=== PATIENT | female | born 2000 | race Caucasian/White ===

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

== ENCOUNTER 2025-02-24 04:15 | Emergency (ER) | payer MEDICAID ==
[~2025-02-24] VITALS: Ht 157.5 cm; Wt 70.5 kg
[~2025-02-24 04:15] MED LIST: NO HOME MEDS
--- NOTE | 2025-02-24 04:41 | Physician Documentation ---
History of Present Illness ~ Chief Complaint: Bloody Emesis Stated Complaint: COMPLICATIONS Time Seen by MD: 04:34 Primary Medical Doctor: ALISON BANGURA HPI Patient presents to the emergency room with the vomiting. She reports that she is at 24 weeks. She states she is always nauseous when she woke up at 2:00 a.m. this morning with significant more nausea. She states she took some Zofran without effect. She reports some blood in her vomit. Medication Reconciliation Allergies: Coded Allergies: pineapple (Verified Allergy, Severe, tingling on the tongue, throat swell s, 02/24/25) acetaminophen (Verified Allergy, Unknown, 02/24/25) kiwi (Unverified Allergy, Unknown, 02/24/25) metoclopramide (Unverified Allergy, Unknown, 02/24/25) Miscellaneous Medications Home Med List (No Home Medications), (Reported) Past Medical History Past Medical History: Anxiety, Depression Past Surgical History: tonsillectomy Alcohol Use: None Drug Use: none Lives with: Family Lives In: Home Occupation: student Review of Systems ROS All review of systems negative except as per HPI Physical Exam Vital Signs: Temperature: 97.0, Source: Temporal, Heart Rate: 83, Respiratory Rate: 16, BP: 102/67, Pulse Oximetry: 98, Weight: 70.500 Oxygen Flow Rate: 0 Physical Exam General: Patient is awake, alert, oriented x4 in mild distress. Anxious Head: Normocephalic and atraumatic. Eyes: Conjunctival normal. EOMI. PERRL. ENT: Mucous membranes moist. Neck: Supple, trachea is midline. Chest: Clear to auscultation bilaterally without rales, rhonchi, or wheezes. There is no accessory muscle use or retractions. Cardiac: RRR without murmurs, gallops, or rubs. Abd: Soft, nondistended, nontender, with normoactive bowel sounds. No guarding, rebound, or rigidity. Progress Results/Orders Results/Orders Orders - GAVIN PHAN MD Urinalysis, Cult If Indicated (02/24/25 04:32) Straight Cath For Urine Sample (02/24/25 04:32) Chest,Single View (02/24/25 04:57) Normal Saline 1000ml (Sodium Chloride 10 (02/24/25 04:45) Completed Orders - GAVIN PHAN MD Cbc/Diff (02/24/25 04:32) BMP (02/24/25 04:32) Lipase (02/24/25 04:32) CMP (02/24/25 04:32) Hcg Serum Ql (02/24/25 04:36) Chest,Single View (02/24/25 04:57) Diphenhydramine Inj (Benadryl Inj.) (02/24/25 04:40) Prochlorperazine Inj (Compazine Inj) (02/24/25 04:40) Famotidine/Pf Iv Inj (Pepcid Iv Inj) (02/24/25 04:45) Medications Received in ER Medications (Trade) Dose Ordered Sig/Sincere Route PRN Reason Start Time Stop Time Status Last Admin Dose Admin (Compazine inj) 10 mg ONCE ONCE IV 02/24/25 04:40 02/24/25 04:41 DC 02/24/25 04:46 10 MG Sodium Chloride 1,000 ml @ 1,000 mls/hr ONCE ONCE IV 02/24/25 04:45 02/24/25 05:44 02/24/25 04:51 1,000 MLS/HR (Pepcid IV inj) 20 mg ONCE ONCE IV 02/24/25 04:45 02/24/25 04:46 DC 02/24/25 04:49 20 MG Vital Signs 02/24/25 02/24/25 02/24/25 04:17 05:06 05:06 Temp 97.0 Pulse 83 80 Resp 16 18 18 B/P (MAP) 102/67 118/74 (89) Pulse Ox 98 99 O2 Flow Rate 0 Laboratory Tests Test 02/24/25 04:42 02/24/25 05:13 Sodium Level 136 Potassium Level 3.5 Chloride Level 101 Carbon Dioxide Level 20.5 L Anion Gap 15 Blood Urea Nitrogen 7 Creatinine 0.60 Estimated GFR/1.73 m2 > 90 BUN/Creatinine Ratio 11.7 Glucose Level 104 Calcium Level 9.8 Total Bilirubin 0.3 Aspartate Amino Transf (AST/SGOT) 21 Alanine Aminotransferase (ALT/SGPT) 15 Alkaline Phosphatase 71 Total Protein 7.6 Albumin 3.2 L Globulin 4.4 H Albumin/Globulin Ratio 0.7 L Lipase 23 Human Chorionic Gonadotropin, Qual Positive Chemistry Comments White Blood Count 11.7 H Red Blood Count 3.44 L Hemoglobin 10.0 L Hematocrit 30.2 L Mean Corpuscular Volume 88.0 Mean Corpuscular Hemoglobin 29.2 Mean Corpuscular Hemoglobin Concent 33.2 Red Cell Distribution Width 13.3 Platelet Count 274 Mean Platelet Volume 8.9 Neutrophils (%) (Auto) 76.0 H Lymphocytes (%) (Auto) 16.3 L Monocytes (%) (Auto) 6.5 Eosinophils (%) (Auto) 1.1 Basophils (%) (Auto) 0.1 Neutrophils # (Auto) 8.9 H Lymphocytes # (Auto) 1.9 Monocytes # (Auto) 0.8 Eosinophils # (Auto) 0.1 Basophils # (Auto) 0.0 CBC Comment Medical Decision Making Findings Patient presents to the emergency room with nausea and vomiting as per HPI differentials include but are not limited to hyperemesis, panic attack, dehydration, electrolyte disturbances therefore labs performed which were reassuring. Patient does have decreased CO2 and believe this is partially r elated to a combination of dehydration as well as patient being very worked up. She has responded to Benadryl and Compazine in his feeling much better in his received IV fluids and she is asking to go. Chest x-ray is reassuring for no subcutaneous emphysema and he had not feel she is suffering from Borhaavs and I believe the risk of radiation exposure of CT to the fetus outweighs any benefit for low suspicion Borhaavs. No appreciable blood in vomitus. Possible Whitney- Lizama Departure Disposition: 01 HOME / SELF CARE / HOMELESS Impression: Primary Impression: Vomiting Condition: Improved Discharge Instructions: Vomiting, Adult Referrals: NO PRIMARY CARE PROVIDER (PCP) Education Educated: Patient Educated regarding: diagnosis, treatment, need for follow up Signature Scribe Signature: No scribe Attestation: The note accurately reflects work and decisions made by me.Gavin Phan MD 02/24/25 05:25 GAVIN PHAN MD Feb 24, 2025 04:41
[2025-02-24] MEDS: proCHLORperazine 10 MG/2 ml inj IV ONE (04:46)
[2025-02-24] MEDS: famotidine/PF 10 mg/ml inj IV ONE (04:49)
[2025-02-24] MEDS: normal saline 1000ml 1,000 ML IV ONE (04:51)
[2025-02-24] MEDS: diphenhydrAMINE 50 mg/ml inj IV ONE (04:55)
[2025-02-24 05:09] LABS: HCG SERUM QL POSITIVE
--- NOTE | 2025-02-24 05:09 | RADIOLOGY REPORT ---
CHEST RADIOGRAPH Indication: cp with vomiting Technique: Single frontal view of the chest was obtained COMPARISON: None FINDINGS: Lines and Tubes: None Lungs: Clear Pleura: No effusion. No pneumothorax. Cardiomediastinal contours: Unremarkable Bones: Unremarkable IMPRESSION: No acute disease.
[2025-02-24 05:19] LABS: ALANINE AMINOTRANSFERASE 15 U/L (12-78); ALBUMIN 3.2 G/DL (3.4-5.0); ALBUMIN/GLOBULIN RATIO 0.7 (1.1-1.5); ALKALINE PHOSPHATASE 71 IU/L (46-116); ANION GAP 15 (8-16); ASPARTATE AMINO TRANSFERASE 21 U/L (10-37); BILIRUBIN,TOTAL 0.3 MG/DL (0.1-1.0); BLOOD UREA NITROGEN 7 MG/DL (7-18); BUN/CREATININE RATIO 11.7 (10.0-20.0); CALCIUM 9.8 MG/DL (8.5-10.1); CHLORIDE 101 MMOL/L (99-107); GLUCOSE 104 MG/DL (70-104); LIPASE 23 U/L (16-77); POTASSIUM 3.5 MMOL/L (3.5-5.1); SODIUM 136 MMOL/L (135-145); TOTAL CARBON DIOXIDE 20.5 MMOL/L (24-32); TOTAL PROTEIN 7.6 G/DL (6.4-8.2); eCRCL 115 ML/MIN; eGFR > 90 ML/MIN
[2025-02-24 05:20] LABS: BASOPHILS % (AUTO) 0.1 % (0-1); EOSINOPHILS # (AUTO) 0.1 X10'3 (0-0.9); EOSINOPHILS % (AUTO) 1.1 % (0-6); HEMATOCRIT 30.2 % (35.0-45.0); LYMPHOCYTES # (AUTO) 1.9 X10'3 (1.1-4.8); LYMPHOCYTES % (AUTO) 16.3 % (21-51); MEAN CORPUSCULAR HEMOGLOBIN 29.2 PG (27.0-31.0); MEAN CORPUSCULAR HGB CONC 33.2 g/dL (33.0-36.5); MEAN PLATELET VOLUME 8.9 FL (7.4-10.4); MONOCYTES # (AUTO) 0.8 X10'3 (0-0.9); MONOCYTES % (AUTO) 6.5 % (2-12); NEUTROPHILS # (AUTO) 8.9 X10'3 (1.8-7.7); PLATELET COUNT 274 X10'3 (140-440); RED BLOOD COUNT 3.44 X10'6 (4.20-5.60); RED CELL DISTRIBUTION WIDTH 13.3 % (11.5-14.5); WHITE BLOOD COUNT 11.7 X10'3 (4.5-11.0)
[2025-02-24 05:35] VITALS: BP 124/76; PULSE 74; RESP 12; TEMP 97.8; O2SAT 99
== END 2025-02-24 05:39 | disposition home or self-care (01) ==
LOC: ER 04:16
DX: O21.9 Vomiting of pregnancy, unspecified (principal); Z3A.24 24 weeks gestation of pregnancy; Z90.89 Acquired absence of other organs
CPT/HCPCS: 36415; 71045; 80053; 83690; 84703; 85025; 96361; 96374; 96375; 99284; J0780; J3490; J7030

== ENCOUNTER 2025-06-08 22:31 | Emergency (ER) | payer MEDICAID ==
[~2025-06-08] VITALS: Ht 160 cm; Wt 69.4 kg
[2025-06-08 22:39] VITALS: BP 96/60; PULSE 72; RESP 16; O2SAT 98
[2025-06-09 00:58] VITALS: TEMP 97.9
== END 2025-06-09 00:59 | disposition left against medical advice (07) ==
LOC: ER 22:32
DX: R11.0 Nausea (principal); Z53.21 Procedure and treatment not carried out due to patient leaving prior to being seen by health care provider; Z88.8 Allergy status to other drugs, medicaments and biological substances; Z91.040 Latex allergy status

== ENCOUNTER 2025-08-07 08:34 | Emergency (ER) | payer MEDICAID ==
[~2025-08-07] VITALS: Ht 160 cm; Wt 65.8 kg
[2025-08-07 08:35] VITALS: TEMP 98
[2025-08-07 09:30] LABS: MEAN PLATELET VOLUME 8.8 FL (7.4-10.4); RED CELL DISTRIBUTION WIDTH 14.7 % (11.5-14.5)
[2025-08-07 09:57] LABS: CREATININE 0.76 MG/DL (0.40-0.90); TOTAL CARBON DIOXIDE 24.1 MMOL/L (24-32); eCRCL 94 ML/MIN; eGFR > 90 ML/MIN
[2025-08-07 10:02] LABS: ETHANOL < 10 MG/DL (<10)
--- NOTE | 2025-08-07 10:09 | Physician Documentation ---
History of Present Illness ~ Chief Complaint: Mental Health Eval Stated Complaint: SEE CHIEF Time Seen by MD: 08:58 Primary Medical Doctor: ALISON BANGURA Mode of Arrival: POV, Ambulatory HPI This is a 25-year-old female with a history of bipolar disorder, anxiety, and depression who presents with increased feelings of anxiety and a feeling of being overwhelmed due to life stressors including an eight month old and a toddler at home and relationship issues with partner. Patient reports that she has been out of her previously prescribed medication for bipolar disorder and her levothyroxine. Patient reports that she has not been able to sleep for the past three days due to caring for her and her toddler who has a cold. Patient additionally reports that she accidentally struck her head on a dresser while sitting down this morning as well and now has a headache with nausea, she reports no loss of consciousness. Reports that she did vomit though she believes this was due to stress. Reports she has history of migraines and reports pain in her head as unilateral to left side and throbbing in nature. No other acute symptoms or concerns. Patient reports no suicidal ideation or homicidal ideation. Medication Reconciliation Allergies: Coded Allergies: pineapple (Verified Allergy, Severe, tingling on the tongue, throat swells, 06/21/25) latex (Verified Allergy, Mild, ITCHY, 06/21/25) acetaminophen (Verified Allergy, Unknown, 06/21/25) kiwi (Unverified Allergy, Unknown, 06/21/25) metoclopramide (Unverified Allergy, Unknown, 06/21/25) Scheduled Hydroxyzine Hcl (Atarax), 1 TAB PO Q8H Levothyroxine Sodium (Synthroid), 1 TAB PO DAILY Lurasidone HCl (Latuda), 1 TAB PO DAILY Miscellaneous Medications Home Med List (No Home Medications), (Reported) Past Medical History Past Medical History: Anxiety, Bipolar, Depression Past Surgical History: tonsillectomy Alcohol Use: None Drug Use: none Lives with: Family Lives In: Home Occupation: student Review of Systems ROS As stated above in the HPI, otherwise all systems are reviewed and negative. Physical Exam Vital Signs: Temperature: 98.0, Heart Rate: 65, Respiratory Rate: 15, BP: 97/68, Pulse Oximetry: 98, Weight: 65.800 Oxygen Flow Rate: 0 Physical Exam VITALS: Reviewed and as above. GENERAL: Alert, nontoxic appearing, no apparent distress. HEENT: PERRLA, EOMI, no scalp lacerations, no bar sign, no periorbital ecchymosis RESPIRATORY: No increased work of breathing, no respiratory distress, speaking in full clear sentences NEURO: GCS 15 PSYCH: Tearful, anxious appearing Progress Results/Orders Results/Orders Completed Orders - SAI CEVALLOS [employer] OFF[employer] Ondansetron Disint. Tablet (Zofran Odt T (08/07/25 10:05) Hydroxyzine Tablet (Atarax Tablet) (08/07/25 10:05) Ketorolac Trometh 15mg/Ml Vial (Toradol (08/07/25 10:05) Vital Signs 08/07/25 08/07/25 08/07/25 08/07/25 08:35 08:54 09:46 10:16 Temp 98.0 Pulse 115 65 Resp 16 20 15 17 B/P (MAP) 135/91 97/68 (78) Pulse Ox 95 98 O2 Flow Rate 0 08/07/25 10:40 Pulse 59 Resp 15 B/P (MAP) 112/76 Pulse Ox 99 Laboratory Tests Test 08/07/25 09:14 White Blood Count 8.9 Red Blood Count 4.40 Hemoglobin 13.2 Hematocrit 39.9 Mean Corpuscular Volume 90.6 Mean Corpuscular Hemoglobin 30.0 Mean Corpuscular Hemoglobin Concent 33.1 Red Cell Distribution Width 14.7 H Platelet Count 302 Mean Platelet Volume 8.8 Neutrophils (%) (Auto) 67.5 Lymphocytes (%) (Auto) 21.2 Monocytes (%) (Auto) 7.5 Eosinophils (%) (Auto) 3.0 Basophils (%) (Auto) 0.8 Neutrophils # (Auto) 6.0 Lymphocytes # (Auto) 1.9 Monocytes # (Auto) 0.7 Eosinophils # (Auto) 0.3 Basophils # (Auto) 0.1 CBC Comment Sodium Level 140 Potassium Level 3.6 Chloride Level 107 Carbon Dioxide Level 24.1 Anion Gap 9 Blood Urea Nitrogen 10 Creatinine 0.76 Estimated GFR/1.73 m2 > 90 BUN/Creatinine Ratio 13.2 Glucose Level 100 Calcium Level 8.8 Albumin 3.9 Thyroid Stimulating Hormone (TSH) 20.21 H Chemistry Comments Ethyl Alcohol Level < 10 Medical Decision Making Additional information obtaine: N/A Findings This 25-year-old female with a history of bipolar, headache, and depression presented with increased symptoms of anxiety and feeling overwhelmed due to life stressors, additionally patient is currently not on prescribed medications for bipolar disorder or hypothyroidism, and reports headache after injury to the back of her head due to bumping her head on a dresser. Patient is otherwise well-appearing with benign physical exam no injuries noted to scalp and no evidence of head injury that would warrant imaging per [place] head CT rule. It is reassuring patient is reporting no homicidal ideation or suicidal ideation, patient will be restarted on previously prescribed medications and prescribed a as needed medication for anxiety until she can follow up with her primary care provider primary mental health provider. Patient medicated for headache and nausea. Patient is stable and appropriate for outpatient follow up. Patient provided careful return to care precautions, follow up instructions, and home care instructions. Return precautions included returning immediately to the emergency department, [facility], or [facility] clinic/mobile crisis team if she develops thoughts of harming herself or other. Patient verbalized understanding of all discharge instructions. Differential Dx:Considerations: Include: Anxiety, Bipolar disorder, Conversion disorder, Depression, Homicidal, Panic disorder, Personality disorder, Schizophrenia, Substance abuse, Suicidal, Other (Migraine, scalp laceration, skull fracture, intracranial hemorrhage) Departure Time of Disposition: 10:30 Disposition: 01 HOME / SELF CARE / HOMELESS Impression: Primary Impression: Anxiety Additional Impression: Headache Qualified Codes: R51.9 - Headache, unspecified Condition: Improved Discharge Instructions: Depression, Adult, Panic Attack Additional Instructions: Please take medications as prescribed. Follow up as soon as possible with your mental health provider. Please follow up with your primary care provider in the next few days. Please return to the emergency department for any new or worsening concerning symptoms. Referrals: NO PRIMARY CARE PROVIDER (PCP) Prescriptions Hydroxyzine Hcl (Atarax) 25 Mg Tablet 1 TAB PO Q8H for anxiety for 30 Days, #90 TAB 0 Refills Prov: SAI CEVALLOS 08/07/25 Lurasidone HCl (Latuda) 20 Mg Tablet 1 TAB PO DAILY for 30 Days, #30 TAB 0 Refills Prov: SAI CEVALLOS 08/07/25 Levothyroxine Sodium (SYNTHROID) 100 Mcg Tablet 1 TAB PO DAILY for 30 Days, #30 TAB 0 Refills Prov: SAI CEVALLOS 08/07/25 Education Educated: Patient Educated regarding: diagnosis, treatment, prognosis, need for follow up Signature Scribe Signature: No scribe Attestation: The note accurately reflects work and decisions made by me.RAMANDEEP Ontiveros 08/07/25 20:43 SAI CEVALLOS Aug 07, 2025 10:09
[2025-08-07] MEDS: ondansetron 4mg rapidly disintigrating tab PO ONE (10:15)
[2025-08-07] MEDS: ketorolac trometh 15mg/ml vial 15 MG/ML ML IM ONE (10:16)
[2025-08-07] MEDS ORDERED: LEVO100T PO (10:35)
[2025-08-07] MEDS ORDERED: HYDR-3686 PO (10:35)
[2025-08-07] MEDS ORDERED: LURA20TA8 PO (10:35)
[2025-08-07 10:40] VITALS: BP 112/76; PULSE 59; RESP 15; O2SAT 99
== END 2025-08-07 10:43 | disposition home or self-care (01) ==
LOC: ER 08:35
DX: R51.9 Headache, unspecified (principal); F41.9 Anxiety disorder, unspecified; R11.2 Nausea with vomiting, unspecified; F31.9 Bipolar disorder, unspecified; Z90.89 Acquired absence of other organs; Z91.040 Latex allergy status; Z88.8 Allergy status to other drugs, medicaments and biological substances
CPT/HCPCS: 36415; 80048; 80320; 84443; 85025; 96372; 99283; J1885; Q0177